=== PATIENT | male | born 1985 | race Caucasian/White ===

== ENCOUNTER 2024-01-21 10:20 | Day surgery (SDC) | payer OTHER, SELFPAY ==
[2024-01-19 14:45] VITALS: BMI 29.3
--- NOTE | 2024-01-20 12:26 | HO.ANESPROP2 ---
Documented by User: Marsha Rico NP 01/20/24 12:30 HPI - Anesthesia Eval Consult details Narrative: 38yo M for Upper Endoscopy [facility] Past Medical History Medical History Esophagitis Hiatal hernia GERD (gastroesophageal reflux disease) Surgical History Surgical History Hx of knee surgery (~2000) Hx of right inguinal hernia repair (~2015) Social History Social History Patient Tobacco Use Status: Never used Tobacco Use of substances other than those prescribed or required for medical reasons: No Are you DNR?: No Advance Directives: No Advance Directives Information Provided: Yes Meds Allergies Allergy/AdvReac Type Severity Reaction Status Date / Time No Known Allergies Allergy Verified 01/21/24 09:36 Home Medications ?Medication ?Instructions ?Recorded ?Confirmed ?Last Taken ?Type esomeprazole magnesium 20 mg 20 mg PO DAILY 01/19/24 01/19/24 Unknown History capsule,delayed release Exam Height,Weight and Vital Signs: Height 5 ft 11 in Weight 95.254 kg Assessment and Plan Assessment Anesthesia Assessment: Chart Reviewed Documented by User: Sanam Zhang MD 01/21/24 11:08 [facility] Past Medical History Medical History Esophagitis Hiatal hernia GERD (gastroesophageal reflux disease) Surgical History Surgical History Hx of knee surgery (~2000) Hx of right inguinal hernia repair (~2016) History of Problems with Anesthesia: No Social History Social History Patient Tobacco Use Status: Never used Tobacco Use of substances other than those prescribed or required for medical reasons: No Are you DNR?: No Advance Directives: No Advance Directives Information Provided: Yes Meds Allergies Allergy/AdvReac Type Severity Reaction Status Date / Time No Known Allergies Allergy Verified 01/21/24 09:36 Home Medications ?Medication ?Instructions ?Recorded ?Confirmed ?Last Taken ?Type esomeprazole magnesium 20 mg 20 mg PO DAILY 01/19/24 01/19/24 Unknown History capsule,delayed release Exam Airway Mallampati Class: III (full greenberg) TM Dist: >3cm Neck ROM: Full Loose/Missing/Broken Teeth: No Heart: RRR Lungs: CTA Assessment and Plan Assessment Anesthesia Assessment: Anesthesia Plan Discussed Final Anesthetic Review History of Problems with Anesthesia: No NPO: Yes ASA Class: II Final Preanesthetic Review: Meds/Allgs Chart Reviewed, Consent Obtained/Reviewed and Anes Risks/Benef Reviewed Patient Risk: Low Procedure Risk: Intermediate Anesthetic Plan Anesthetic Plan: MAC: Disposition: Standard PACU
[2024-01-21 10:28] VITALS: BMI 30.3
[2024-01-21 10:54] VITALS: BP 154/97; PULSE 74; RESP 18; TEMP 36.9; O2SAT 97
[2024-01-21] MEDS: Lactated Ringers 1,000 ML 100 ML IVCONT (10:56)
[2024-01-21 12:05] VITALS: BP 119/86; PULSE 84; RESP 16; TEMP 36.6; O2SAT 96
--- NOTE | 2024-01-21 12:13 | P.BOP_ITS ---
Brief Operative Note Date of Service: 01/21/24 Pre-op diagnosis: GERD Post-op diagnosis: other (Same, Hiatal hernia, Gastric polyps) Procedure: EGD with biopsies Surgeon: Arnie Wise MD Anesthesia: MAC Was an Power Line Lineman used for this Procedure?: No Estimated blood loss (mL): 2.0 Pathology: other (A. Gastric polyps B. EG Junction at 39cm) Condition: stable Disposition: PACU
[2024-01-21 12:23] VITALS: BP 128/83; PULSE 79; RESP 17; TEMP 36.1; O2SAT 96
--- NOTE | 2024-01-21 13:01 | OP_ITS ---
DATE OF SERVICE: 01/21/2024 SURGEON: Arnie Wise MD INDICATIONS: The patient presents for evaluation of chronic gastroesophageal reflux. Full consent has been obtained from him for this, including risks of bleeding and perforation. PREOPERATIVE DIAGNOSIS: Gastroesophageal reflux. POSTOPERATIVE DIAGNOSIS: PROCEDURE PERFORMED: Esophagogastroduodenoscopy with biopsies. ESTIMATED BLOOD LOSS: COMPLICATIONS: ANESTHESIA: Monitored anesthesia care. ASSISTANTS: SPECIMENS: POSTOPERATIVE DIAGNOSES: Gastroesophageal reflux, hiatal hernia, gastric polyps. DESCRIPTION OF PROCEDURE: The patient was placed in the left lateral decubitus position. The Olympus video gastroscope was passed in the posterior oropharynx and upper esophagus under direct vision. The scope was passed slowly into the distal esophagus. The gastroesophageal junction appeared at 39 cm. There was some slight irregularity consistent with reflux and possibly small, less than 1 cm areas of Hutton mucosa. There was no esophagitis nor any lesions. The scope entered the stomach. There was a small hiatal hernia. The scope was advanced to the pylorus and the duodenum was cannulated to the descending portion. The duodenum including the bulb appeared normal without mass or ulceration. The scope was withdrawn back to the stomach. The gastric antrum and body appeared normal with good peristalsis. The scope was retroflexed visualizing the proximal stomach carefully, which appeared normal, without any mass or ulceration. However, there were several hyperplastic polyps in the proximal stomach. Multiple biopsies were obtained. The scope was withdrawn back to the esophagus. Multiple biopsies were obtained at the EG junction at 39 cm. Proximal to this, the esophageal mucosa appeared normal. The scope was withdrawn from the patient. He tolerated the procedure well and was returned to the recovery area in stable condition. IMPRESSION: 1. Hiatal hernia, gastroesophageal reflux, rule out Hutton esophagus. 2. Gastric polyps. PLAN: The results of the biopsies will be checked. At the present time, he is doing much better from a symptomatic standpoint on omeprazole 40 mg per day rather than 20. I did advise him to continue this. He was advised not to use any aspirin and NSAIDs for 1 week. He was advised to see me again later in the year for a followup visit. If he continues to have problems in regard to the reflux, then we could consider hiatal hernia surgery. However, if he is doing well on medication, we could then certainly just continue that line of treatment. This has been discussed with his . MD CARMEN Santiago/BI / [id number]
== END 2024-01-21 12:45 | disposition home or self-care (01) ==
PROVIDERS: PCP Pediatrics; Visit Provider Internal Medicine
PROC: 0DJ08ZZ Inspection of Upper Intestinal Tract, Via Natural or Artificial Opening Endoscopic (ICD-10-PCS; CPT 43235; principal; 2024-01-21 11:30)
DX: K21.9 Gastro-esophageal reflux disease without esophagitis (principal); K31.7 Polyp of stomach and duodenum; K44.9 Diaphragmatic hernia without obstruction or gangrene; K20.90 Esophagitis, unspecified without bleeding; Z79.899 Other long term (current) drug therapy; Z87.891 Personal history of nicotine dependence
CPT/HCPCS: 43239; 88305; 88313; 88342; J1596; J2704